=== PATIENT | male | born 1995 | race Caucasian/White ===

== ENCOUNTER 2018-07-22 17:45 | Emergency (ER) | payer OTHER ==
[2018-07-22 19:34] LABS: INFLUENZA A AMPLIFICATION NEGATIVE (NEGATIVE); INFLUENZA B AMPLIFICATION NEGATIVE (NEGATIVE)
== END 2018-07-22 21:16 | disposition home or self-care (01) ==
LOC: M ED 17:45
DX: J06.9 Acute upper respiratory infection, unspecified (principal)
CPT/HCPCS: 87502